=== PATIENT | female | born 1975 | race Caucasian/White ===

== ENCOUNTER 2016-08-30 05:48 | Inpatient (IN) | payer OTHER ==
[~2016-08-30] VITALS: Ht 170.2 cm; Wt 74.0 kg
[~2016-08-30 05:48] MED LIST: OMEP1CAP15 PO
[2016-08-30] MEDS ORDERED: OXYTOCIN 30U/ 0.9% NaCL 500ML 500 ML IV ONE (06:12)
[2016-08-30] MEDS ORDERED: OXYTOCIN 30U/ 0.9% NaCL 500ML 500 ML IV PRN ×2 (06:12→09:12)
[2016-08-30] MEDS ORDERED: D5%-LACTATED RINGERS 1,000 ML IV SCH (06:12)
[2016-08-30] MEDS ORDERED: FENTANYL PF 100 MCG/2ML ONE (06:19)
[2016-08-30] MEDS ORDERED: METOCLOPRAMIDE 5 MG/ML, 2ML IVPush PRN (06:30)
[2016-08-30] MEDS ORDERED: FENTANYL PF 100 MCG/2ML IVPush PRN (06:30)
[2016-08-30] MEDS ORDERED: SODIUM CITRATE/CITRIC ACID 30 ML UDC PO PRN (06:30)
[2016-08-30] MEDS ORDERED: FENTANYL PF 100 MCG/2ML IV PRN (06:30)
[2016-08-30] MEDS ORDERED: ONDANSETRON 2MG/ML, 2ML IVPush PRN (06:30)
[2016-08-30] MEDS ORDERED: OXYTOCIN 30U/ 0.9% NaCL 500ML 500 ML ONE (07:06)
[2016-08-30] MEDS ORDERED: NEWBORN KIT ONE (07:06)
[2016-08-30] MEDS: LACTATED RINGERS 1,000 ML IV SCH ×4 (07:13→23:20)
[2016-08-30] MEDS ORDERED: FENTANYL/BUPIV./NS/PF 250 ML EPIDCONT ONE ×2 (07:38→07:40)
[2016-08-30] MEDS ORDERED: LIDOCAINE/PF 1.5%-EPI 1:200K, 30ML ONE ×2 (07:39→07:40)
[2016-08-30] MEDS ORDERED: LIDOCAINE 1%, 20ML ONE (07:40)
[2016-08-30] MEDS ORDERED: EPHEDRINE 50 MG/ML, 1ML IVPush PRN (08:30)
[2016-08-30] MEDS ORDERED: LACTATED RINGERS 1,000 ML IVBOLUS PRN (08:30)
[2016-08-30] MEDS ORDERED: NALOXONE 0.4 MG/ML, 1ML IVPush PRN (08:30)
[2016-08-30] MEDS ORDERED: FENTANYL/BUPIV./NS/PF 250 ML EPIDCONT SCH (08:30)
[2016-08-30] MEDS ORDERED: SODIUM CITRATE/CITRIC ACID 30 ML UDC ONE (09:34)
[2016-08-30] MEDS: OXYTOCIN 30U/ 0.9% NaCL 500ML 500 ML IV SCH ×2 (11:58→21:58)
[2016-08-30] MEDS ORDERED: MISOPROSTOL 200 MCG TABLET PO PRN (12:00)
[2016-08-30] MEDS ORDERED: ONDANSETRON 2MG/ML, 2ML IV PRN (12:00)
[2016-08-30] MEDS ORDERED: OXYcodone/APAP 5/325MG TABLET PO PRN (12:00)
[2016-08-30] MEDS ORDERED: DOCUSATE 100 MG CAPSULE PO PRN (12:00)
[2016-08-30] MEDS ORDERED: OXYcodone/APAP 5/325MG TABLET ONE (13:13)
[2016-08-30] MEDS: OXYcodone/APAP 5/325MG TABLET PO PRN ×2 (13:14→17:57)
[2016-08-30 14:15] VITALS: BP 129/84
[2016-08-30 16:05] VITALS: BP 130/90
[2016-08-30] MEDS: IBUPROFEN 600 MG TABLET PO PRN (16:35)
[2016-08-30 19:45] VITALS: BP 115/67
[2016-08-30 23:50] VITALS: BP 108/63
[2016-08-31] MEDS: IBUPROFEN 600 MG TABLET PO PRN ×2 (00:01→07:48)
[2016-08-31] MEDS: OXYcodone/APAP 5/325MG TABLET PO PRN ×2 (03:29→07:48)
[2016-08-31 03:30] VITALS: BP 109/81
[2016-08-31 08:10] VITALS: BP 115/81
[2016-08-31] MEDS ORDERED: PRENATAL VIT/IRON/FA 1 EACH TABLET PO SCH (09:00)
[2016-08-31] MEDS ORDERED: IBUP-1222 PO (13:00)
[2016-08-31] MEDS ORDERED: OXYC-302 PO (13:00)
== END 2016-08-31 14:30 | disposition home or self-care (01) | DRG 775 ==
LOC: LDOP 05:48 → LDIP 06:16 → 2NW 15:37
PROVIDERS: ADMIT Obstetrics & Gynecology; ATTEND Obstetrics & Gynecology
PROC: 10E0XZZ Delivery of Products of Conception, External Approach (ICD-10-PCS; principal; 2016-08-30)
PROC: 00HU33Z Insertion of Infusion Device into Spinal Canal, Percutaneous Approach (ICD-10-PCS; 2016-08-30)
PROC: 3E0R3CZ (ICD-10-PCS; 2016-08-30)
DX: O99.344 Other mental disorders complicating childbirth (principal); Z37.0 Single live birth; F32.9 Major depressive disorder, single episode, unspecified; F41.9 Anxiety disorder, unspecified; Z3A.39 39 weeks gestation of pregnancy
CPT/HCPCS: 36415; 85025; 86850; 86900; J3010; J3490; J2590; J7120

== ENCOUNTER 2019-05-08 17:01 | Emergency (ER) | payer OTHER ==
[~2019-05-08] VITALS: Ht 170.2 cm; Wt 57.2 kg
[~2019-05-08 17:01] MED LIST changes: +IBUP-1222 PO; +OXYC-302 PO
[2019-05-08 17:08] VITALS: BP 165/88
--- NOTE | 2019-05-08 18:22 | NUR ---
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
--- NOTE | 2019-05-08 18:24 | NUR ---
TENTS ASSEMBLER: PT TO ROOM FROM [facility]
--- NOTE | 2019-05-08 18:29 | NUR ---
BOOT MAKER: CALLED FOR ROOM, NO ANSWER
--- NOTE | 2019-05-08 19:12 | NUR ---
patient 4th time. no answer. not in the lobby.
== END 2019-05-08 19:15 | disposition left against medical advice (07) ==
LOC: ED 19:09
DX: R07.89 Other chest pain (principal); Z53.21 Procedure and treatment not carried out due to patient leaving prior to being seen by health care provider
CPT/HCPCS: 93005; 99281